=== PATIENT | female | born 1970 | race Caucasian/White ===

== ENCOUNTER 2020-12-26 03:33 | Emergency (ER) | payer OTHER ==
[2020-12-26 04:47] LABS: BASOPHIL 0.7 % (0-2); EOSINOPHIL 3.1 % (0-5); HCT 38.8 % (37.0-47.0); HGB 12.6 g/dl (12.5-16.0); LYMPHOCYTE 31.2 % (15-48); MCH 29.8 pg (25.0-31.0); MCHC 32.5 g/dL (32.0-36.0); MCV 91.7 fL (78.0-100.0); MONOCYTE 12.3 % (0-12); MPV 10.3 fL (6.0-9.5); NEUTROPHIL 52.5 % (41-80); NRBC 0; PLT 257 K/uL (150-400); RBC 4.23 M/uL (4.20-5.40); RDW 12.8 % (11.5-14.0); WBC 4.6 K/uL (4.0-10.5)
[2020-12-26 05:12] LABS: ALBUMIN 3.6 g/dL (3.4-5.0); BILIRUBIN - TOTAL 0.2 mg/dL (0.2-1.0); BUN/CREAT RATIO (CALC) 24.1 RATIO; CREATININE 0.58 mg/dL (0.51-0.95); GLOBULIN (CALCULATION) 3.1 g/dL; POTASSIUM 3.9 mmol/L (3.5-5.1); TOTAL PROTEIN 6.7 g/dL (6.4-8.2)
== END 2020-12-26 05:45 | disposition home or self-care (01) ==
LOC: FER 03:33
PROVIDERS: Internal Medicine
DX: R00.2 Palpitations (principal); Z86.16 Personal history of COVID-19
CPT/HCPCS: 36415; 80053; 84443; 84484; 85025; 93005